=== PATIENT | female | born 1940 ===

== ENCOUNTER 2017-08-26 11:04 | Outpatient (CLI) | payer MEDICARE ==
--- NOTE | 2017-08-26 12:33 | XRay Report ---
RIGHT HIP, 2 views: History: Right hip pain. Normal bone mineralization. No evidence for fracture, dislocation or bone lesion. Minimal osteoarthritic changes are suspected which appear appropriate for this persons age. Moderate degenerative changes are noted in the lower lumbar spine. IMPRESSION: Minimal osteoarthritis of the right hip.
== END 2017-08-26 11:05 | disposition home or self-care (01) ==
LOC: XRAY 11:04
PROVIDERS: ATTEND Internal Medicine
DX: M16.11 Unilateral primary osteoarthritis, right hip (principal); M47.896 Other spondylosis, lumbar region